=== PATIENT | female | born 1990 | race Caucasian/White ===

== ENCOUNTER 2017-01-30 17:48 | Emergency (ER) | payer MEDICAID, OTHER ==
[~2017-01-30] VITALS: Ht 172.7 cm; Wt 115.0 kg
[~2017-01-30 17:48] MED LIST: AMOX500T PO
[2017-01-30 17:49] VITALS: BP 187/94; PULSE 100; RESP 20; TEMP 98.7; O2SAT 96
== END 2017-01-30 19:46 | disposition left against medical advice (07) ==
LOC: NED 17:48
DX: R05 Cough (principal); R07.0 Pain in throat; M79.1 Myalgia; R53.83 Other fatigue; Z53.21 Procedure and treatment not carried out due to patient leaving prior to being seen by health care provider
CPT/HCPCS: 99281